=== PATIENT | female | born 1950 | race Caucasian/White ===

== ENCOUNTER 2017-09-28 10:05 | Outpatient (RCR) | payer MEDICARE, OTHER, SELFPAY ==
[2017-09-28 11:00] LABS: International Normalized Ratio 1.9; Prothrombin Time (Protime)PT. 21.3 SECONDS (11.7-14.9)
== END 2017-09-28 10:30 | disposition home or self-care (01) ==
LOC: LAB 10:05
PROVIDERS: Family Provider Internal Medicine; PCP Internal Medicine; Visit Provider Internal Medicine Cardiovascular Disease
DX: I48.0 Paroxysmal atrial fibrillation (principal); Z79.01 Long term (current) use of anticoagulants
CPT/HCPCS: 36415; 85610

== ENCOUNTER 2017-10-12 10:41 | Outpatient (RCR) | payer MEDICARE, OTHER, SELFPAY ==
[2017-10-12 12:52] LABS: International Normalized Ratio 2.1; Prothrombin Time (Protime)PT. 22.5 SECONDS (11.7-14.9)
[2017-10-31 09:35] LABS: International Normalized Ratio 2.9; Prothrombin Time (Protime)PT. 29.4 SECONDS (11.7-14.9)
== END 2017-10-12 15:00 | disposition home or self-care (01) ==
LOC: LAB 10:41
PROVIDERS: Family Provider Internal Medicine; PCP Internal Medicine; Visit Provider Internal Medicine Cardiovascular Disease
DX: I48.0 Paroxysmal atrial fibrillation (principal)
CPT/HCPCS: 36415; 85610

== ENCOUNTER 2017-11-22 12:02 | Outpatient (RCR) | payer MEDICARE, OTHER, SELFPAY ==
[2017-11-22 12:39] LABS: International Normalized Ratio 1.9; Prothrombin Time (Protime)PT. 21.9 SECONDS (11.7-14.9)
== END 2017-11-22 13:00 | disposition home or self-care (01) ==
LOC: LAB 12:02
PROVIDERS: Family Provider Internal Medicine; PCP Internal Medicine; Visit Provider Internal Medicine Cardiovascular Disease
DX: I48.0 Paroxysmal atrial fibrillation (principal); Z79.01 Long term (current) use of anticoagulants
CPT/HCPCS: 36415; 85610

== ENCOUNTER 2017-12-20 11:11 | Outpatient (RCR) | payer MEDICARE, OTHER, SELFPAY ==
[2017-12-04 11:28] LABS: International Normalized Ratio 2.7; Prothrombin Time (Protime)PT. 28.7 SECONDS (11.7-14.9)
[2017-12-20 12:18] LABS: International Normalized Ratio 2.3; Prothrombin Time (Protime)PT. 25.7 SECONDS (11.7-14.9)
== END 2017-12-20 12:00 | disposition home or self-care (01) ==
LOC: LAB 11:11
PROVIDERS: Physician Assistant Medical; Family Provider Internal Medicine; PCP Internal Medicine; Visit Provider Internal Medicine Cardiovascular Disease
DX: I48.0 Paroxysmal atrial fibrillation (principal); Z79.01 Long term (current) use of anticoagulants
CPT/HCPCS: 36415; 85610

== ENCOUNTER → 2018-01-24 07:32 | Outpatient (CLI) | payer MEDICARE, OTHER, SELFPAY ==
--- NOTE | 2018-01-24 08:50 | BRBX_PTH ---
PATIENT: SUDHEER FERGUSON LOC: [facility] U#:[id number] AGE/SX: 74/F ROOM: RE01/24/[address]: Dr. Dev Garcia MD : 1950 BED: DIS: SPEC #: [id number] RECD: 01/24/18 10:15 STATUS: ISIAH LATESHA #: [id number] MAIA: 01/24/18 08:[address]: Dev Garcia DEPT: SURGICAL PATHOLOGY RECD BY: Dev Eaton ENTERED: 01/24/18 10:24 SP TYPE: BREAST BX OTHR DR: Dr. Richard Jacobson MD Tissues: Right breast, NOS Procedures: Surgery Specimen Level IV HEADER OPERATION: Right breast stereotactic biopsy PRE-OP DIAGNOSIS: Right breast microcalcifications TISSUE SUBMITTED: Right breast core tissue Ischemic time: 1 minute Fixation time: 10.5 hours MICROSCOPIC DIAGNOSIS Right breast microcalcifications, stereotactic core biopsy: Hyalinized fibroadenoma with focal calcifications. Negative for atypia or malignancy. FILI:beau 01/25/18 COMMENT Correlation with clinical, radiologic findings and appropriate follow up are necessary. MICROSCOPIC DESCRIPTION Slides are reviewed. GROSS DESCRIPTION Received is one container labeled with the patient's name and not further designated. The specimen consists of multiple irregular and elongated fragments of yellow-white soft tissue that in aggregate measure 7.5 x 3 x 0.2 cm. The specimen is totally submitted in three cassettes. / AM:beau 01/24/18 TC:1 CPT: 60000
--- NOTE | 2018-01-24 09:29 | PCM.OPRPT ---
Report of Operation Date of Procedure: 01/24/18 Pre-Operative Diagnosis: Right breast microcalcifications - 12 oclock Post-Operative Diagnosis: Right breast microcalcifications - 12 oclock - successful biopsy Surgery/Procedure Performed:: right stereotactic guided mammotome biopsy with specimen radiograph and marker placement patrol officer: None Type of Anesthesia:: Local Estimated Blood Loss (mL): 50 Description of Procedure: The patient was brought to the stereotactic suite and informed of the plan course of events. Theright breast was positioned in the CC position on the [facility] stereotactic table. Mammographic image demonstrated the area of abnormality to be located in the center of the radiograph. Stereotactic images were then obtained which demonstrated good positioning of the abnormality for biopsy with good stroke theresa parameters. The breast was cleaned with Betadine area did one percent lidocaine was used to anesthetize the skin and a small stab incision made. An 8-gauge mammotome needle was placed into the pre-fire position. Stereotactic images demonstrated good positioning around the planned biopsy site. Local anesthetic injected deeply in the breast. The needle was deployed. Post deployment images demonstrated good positioning of the planned biopsy site. Multiple vacuum-assisted samples were obtained and [id number] fashion. Specimen radiograph demonstrated micro-calcifications in the sample. A gel marker clip was deployed. Post biopsy images demonstrated good position of the clip relative the biopsy cavity. The breast was removed from compression. A 4-0 nylon suture was used to close the defect and obtain hemostasis. Post procedure mammogram images were obtained. - Admit VTE Documentation VTE Present on Admission: No
--- NOTE | 2018-01-24 09:33 | OP.PCM_ITS ---
Report of Operation Date of Procedure: 01/24/18 Pre-Operative Diagnosis: Right breast microcalcifications - 12 oclock Post-Operative Diagnosis: Right breast microcalcifications - 12 oclock - successful biopsy Surgery/Procedure Performed:: right stereotactic guided mammotome biopsy with specimen radiograph and marker placement crane chaser: None Type of Anesthesia:: Local Estimated Blood Loss (mL): 50 Description of Procedure: The patient was brought to the stereotactic suite and informed of the plan course of events. Theright breast was positioned in the CC position on the [facility] stereotactic table. Mammographic image demonstrated the area of abnormality to be located in the center of the radiograph. Stereotactic images were then obtained which demonstrated good positioning of the abnormality for biopsy with good stroke theresa parameters. The breast was cleaned with Betadine area did one percent lidocaine was used to anesthetize the skin and a small stab incision made. An 8-gauge mammotome needle was placed into the pre-fire position. Stereotactic images demonstrated good positioning around the planned biopsy site. Local anesthetic injected deeply in the breast. The needle was deployed. Post deployment images demonstrated good positioning of the planned biopsy site. Multiple vacuum-assisted samples were obtained and around-the- clock fashion. Specimen radiograph demonstrated micro-calcifications in the sample. A gel marker clip was deployed. Post biopsy images demonstrated good position of the clip relative the biopsy cavity. The breast was removed from compression. A 4-0 nylon suture was used to close the defect and obtain hemostasis. Post procedure mammogram images were obtained. - Admit VTE Documentation VTE Present on Admission: No
== END ==
PROVIDERS: Family Provider Internal Medicine; PCP Internal Medicine; Visit Provider Surgery
DX: D24.1 Benign neoplasm of right breast (principal)
CPT/HCPCS: 19081; 88305; J7050; A4648

== ENCOUNTER 2018-02-08 14:38 | Outpatient (RCR) | payer MEDICARE, OTHER, SELFPAY ==
--- NOTE | 2018-02-08 14:38 | DT_ITS ---
This patient was seen during an EMR downtime February 05, 2018 - February 12, 2018. This patient may have a combination of paper and electronic documentation or all paper documentation. All documentation is viewable within the e-chart portion of [facility] for each patient visit.
[2018-02-13 04:10] LABS: Prothrombin Time (Protime)PT. 22.7 SECONDS (11.7-14.9)
== END 2018-02-08 17:00 | disposition home or self-care (01) ==
LOC: LAB 14:38
PROVIDERS: Family Provider Internal Medicine; PCP Internal Medicine; Visit Provider Internal Medicine Cardiovascular Disease
DX: I48.0 Paroxysmal atrial fibrillation (principal); Z79.01 Long term (current) use of anticoagulants
CPT/HCPCS: 36415; 85610

== ENCOUNTER 2018-03-09 15:27 | Outpatient (RCR) | payer MEDICARE, OTHER, SELFPAY ==
[2018-03-09 16:34] LABS: Prothrombin Time (Protime)PT. 22.5 SECONDS (11.7-14.9)
== END 2018-03-09 17:00 | disposition home or self-care (01) ==
LOC: LAB 15:27
PROVIDERS: Family Provider Internal Medicine; PCP Internal Medicine; Visit Provider Internal Medicine Cardiovascular Disease
DX: I48.0 Paroxysmal atrial fibrillation (principal); Z79.01 Long term (current) use of anticoagulants
CPT/HCPCS: 36415; 85610